=== PATIENT | female | born 1955 | race Caucasian/White ===

== ENCOUNTER 2019-05-07 09:55 | Day surgery (SDC) | payer SELFPAY ==
[~2019-05-07 09:55] MED LIST: FENTANYL CITR 100 MCG/2 ML ONE; LIDOCAINE 1% MPF 2 ML AMPULE ONE; MIDAZOLAM HCL 2 MG/2 ML INJ ONE; ONDANSETRON 4 MG/2 ML VIAL ONE; PROPOFOL 200 MG/20 ML VIAL IV ONE
[2019-05-07] MEDS ORDERED: Ringers Lactate 1,000 ML IV ONE (10:02)
[2019-05-07 10:09] LABS: Absolute Lymphocytes (CBC) 2.9 K/uL (0.7-4.9); Basophils % 0.6 % (0-1.3); Hematocrit 41.5 % (36.0-45.0); Lymphocytes % 33.1 % (15.3-44.8); MPV 7.9 fL (7.6-11.3); RBC Red Blood Cell Count 4.53 M/uL (3.86-4.86)
[2019-05-07] MEDS ORDERED: CEFAZOLIN/SWI 1gm 1 GM/10 ML SYR ONE (10:12)
--- NOTE | 2019-05-07 10:25 | RAD REPORT ---
EXAM DESCRIPTION: RAD - Chest Pa And Lat (2 Views) - 05/07/2019 9:56 am CLINICAL HISTORY: preop Chest pain. COMPARISON: No comparisons FINDINGS: Several calcified granulomas are present left lung. The lungs are grossly clear. The heart is normal in size. No displaced fractures.
[2019-05-07] MEDS ORDERED: FENTANYL CITR 100 MCG/2 ML ONE ×2 (10:29→11:12)
[2019-05-07] MEDS ORDERED: MINERAL OIL, LITE 10 ML VIAL ONE (10:43)
--- NOTE | 2019-05-07 10:59 | RAD REPORT ---
EXAM DESCRIPTION: RAD - Hand Right 2 View - 05/07/2019 9:56 am CLINICAL HISTORY: preop Hand pain and swelling COMPARISON: No comparisons FINDINGS: Prominent degenerative changes present at the first carpometacarpal joint. Soft tissue swe lling is seen along the dorsum of the hand. No fracture or dislocation.
--- NOTE | 2019-05-07 11:19 | EKG ---
Test Date: 2019-05-07 Test Time: 09:43:20 Branch Employment Coordinator: MAGDALENO MEASUREMENT RESULTS: Intervals: Rate: 64 VT: 134 QRSD: 80 QT: 396 QTc: 408 [place]: P: 69 VT: 134 QRS: 63 T: 44 INTERPRETIVE STATEMENTS: Normal sinus rhythm Normal ECG Compared to ECG 03/16/2008 19:45:34 Sinus bradycardia no longer present Electronically Signed On 05-07-19 11:18:37 CDT by Julián Knapp
[2019-05-07] MEDS ORDERED: HYDROCODONE/APAP 5/325 MG TAB ONE (12:51)
--- NOTE | 2019-05-07 23:56 | OP ---
Surgeon: Evert Schrader MD Preoperative Diagnosis: Basal carcinoma of the right hand. Postoperative Diagnosis: Basal carcinoma of the right hand. Procedure Performed: Excision of basal cell carcinoma of the right hand with flap advancement. Anesthesia: General. Description Of Procedure: After satisfactory induction of general anesthesia, the hand was prepped w ith Betadine scrub, Betadine paint, dry sterile drapes placed in the usual manner. The arm was eleva yobani, exsanguinated with an Esmarch, tourniquet inflated to 250 mmHg. Elliptical incision was made ar ound the mass of the dorsal hand over the third metacarpal, extended proximally and distally. After it was excised, there was questionable area distally and additional crescent excision was performed a nd sent for frozen as well. Frozen section revealed basal cell carcinoma. Lines of resection were c lear. The wound was closed by undermining the skin and advancing the flaps, closed this with4-0 prol adia simple sutures. Dressed with Xeroform, 2 inch Kaleigh, Kerlix, and splint holding the wrist in 10 degrees of dorsiflexion. The patient tolerated the procedure well and returned to recovery. SAMSON/JANICE Voice ID: [id number] Report ID: [id number]
== END 2019-05-07 13:50 | disposition home or self-care (01) ==
LOC: OR 09:55
PROVIDERS: ATTEND Specialist
PROC: 0HBFXZZ Excision of Right Hand Skin, External Approach (ICD-10-PCS; principal; 2019-05-07 09:45)
DX: C44.612 Basal cell carcinoma of skin of right upper limb, including shoulder (principal); Z88.6 Allergy status to analgesic agent
CPT/HCPCS: 36415; 71046; 85025; 88305; 88331; 88332; 93005; J0690; J2001; J2250; J2405; J2704; J3010